=== PATIENT | female | born 1975 ===

== ENCOUNTER 2016-12-13 14:25 | Emergency (ER) | payer OTHER ==
[2016-12-13 14:25] VITALS: BMI 24.0
[2016-12-13 14:33] VITALS: BP 115/66; PULSE 81; RESP 16; TEMP 99.7; O2SAT 99
--- NOTE | 2016-12-13 16:03 | ED PDOC ---
HPI: Abdomen Time Seen by Provider: 12/13/16 15:11 Chief Complaint (Nursing): Abdominal Pain Chief Complaint (Provider): "worms" History Per: Patient Additional Complaint(s): 41 yo female, reports a PMH of HTN and "synthetic lupus," who presents to ED for evaluation of parasites in her stool x 1 month. Pt reports that Patient she has had severe anal itching and see's worms when she has a BM. No abdominal pain Pt reports no recent travel or raw, uncooked foods. Additionally, Pt notes intermittent episodes of right breast pain and swelling. No redness, no nipple discharge. Past Medical History Reviewed: Nursing Documentation, Vital Signs Vital Signs: Last Vital Signs Temp 99.7 F H 12/13/16 14:30 Pulse 81 12/13/16 14:30 Resp 16 12/13/16 14:30 BP 115/66 12/13/16 14:30 Pulse Ox 99 12/13/16 14:30 - Medical History PMH: Anemia, Seizures Denies: Chronic Kidney Disease - Surgical History Surgical History: Cholecystectomy - Family History Family History: States: Unknown Family Hx - Living Arrangements Living Arrangements: With Family - Social History Current smoker - smoking cessation education provided: No Alcohol: Social Drugs: Denies - Immunization History Hx Tetanus Toxoid Vaccination: No Hx Influenza Vaccination: No Hx Pneumococcal Vaccination: No - Home Medications Home Medications: Ambulatory Orders Medication Instructions Recorded Sulfamethoxazole/Trimethoprim 1 tab PO Q12 #0 tab 04/14/16 [Bactrim DS Tab] Albuterol HFA [Ventolin HFA 90 2 puff IH Q4H #1 puff 05/20/16 mcg/actuation (8 g)] Oseltamivir [Tamiflu] 75 mg PO BID #10 cap 05/20/16 Promethazine/Codeine 5 ml PO Q8 #60 ml 05/20/16 [Codeine/Promethazine 10 MG/5 Ml-6.25 MG/5 Ml] Mebendazole [Emverm] 100 mg PO DAILY #1 tab.chew 12/13/16 - Allergies Allergies/Adverse Reactions: Allergies Allergy/AdvReac Type Severity Reaction Status Date / Time peanut Allergy RASH Verified 12/13/16 14:30 Penicillins Allergy RASH Verified 05/20/16 16:42 Review of Systems ROS Statement: Except As Marked, All Systems Reviewed And Found Negative Gastrointestinal: Positive for: Other (rectal itching) Genitourinary Female: Positive for: Other (breast swelling) Physical Exam - Reviewed Nursing Documentation Reviewed: Yes Vital Signs Reviewed: Yes - Physical Exam Appears: Positive for: Well, Non-toxic, No Acute Distress Head Exam: Positive for: ATRAUMATIC, NORMAL INSPECTION, NORMOCEPHALIC Skin: Positive for: Normal Color, Warm, DRY Eye Exam: Positive for: EOMI, Normal appearance, PERRL ENT: Positive for: Normal ENT Inspection Neck: Positive for: Normal, Painless ROM Cardiovascular/Chest: Positive for: Regular Rate, Rhythm Respiratory: Positive for: CNT, Normal Breath Sounds Gastrointestinal/Abdominal: Positive for: Normal Exam, Bowel Sounds, Soft Back: Positive for: Normal Inspection Rectal: Positive for: Other (Pt deferred) Extremity: Positive for: Normal ROM Neurologic/Psych: Positive for: Alert, Oriented - ECG O2 Sat by Pulse Oximetry: 99 Medical Decision Making Medical Decision Making: Preg (-) Stool sample obtained and sent. Pt given RX for Mebendazole. Given follow up for [facility] clinic as well. Physical exam benign at this time, no masses noted. No erythema, no edema. imaging studies not clinically indicated at this time. Disposition - Clinical Impression Clinical Impression: Pinworms, Breast pain - Patient ED Disposition Is Patient to be Admitted: No - Disposition [facility] Disposition: Routine/Home Disposition Time: 16:06 Condition: STABLE Prescriptions: Mebendazole [Emverm] 100 mg PO DAILY #1 tab.chew Instructions: Enterobiasis (ED), Breast Self Exam for Women (ED)
== END 2016-12-13 16:25 | disposition home or self-care (01) ==
LOC: H.ER 14:25
DX: B80 Enterobiasis (principal)

== ENCOUNTER 2017-03-04 12:05 | Emergency (ER) | payer OTHER ==
[2017-03-04 12:11] VITALS: BP 137/83; PULSE 98; TEMP 98.8; O2SAT 98
[2017-03-04 12:12] VITALS: BMI 24.7
[2017-03-04 12:30] VITALS: RESP 16
--- NOTE | 2017-03-04 12:34 | ED PDOC ---
HPI: General Adult Time Seen by Provider: 03/04/17 12:18 Chief Complaint (Provider): Left Sided Facial Numbness, Abd Pain, Left Knee Pain , Anxiety History Per: Patient History/Exam Limitations: no limitations Current Symptoms Are (Timing): Still Present Additional Complaint(s): Tiara Robertson, a 41 year old female, with a past medical history of depression and lupus presents to the ED complaining of left sided facial numbness, abdominal pain, left knee pain, anxiety and parasites in her stool. Patient reports that she is unsure of how long she has had these symptoms. she states that she has been very stressed lately due to an upcoming court case for a DYFS matter. Denies homicidal/suicidal ideations. Past Medical History Reviewed: Historical Data, Nursing Documentation, Vital Signs Vital Signs: Last Vital Signs Temp 98.8 F 03/04/17 12:27 Pulse 98 H 03/04/17 12:27 Resp 16 03/04/17 12:27 BP 137/83 03/04/17 12:27 Pulse Ox 98 03/04/17 12:51 - Medical History PMH: Anemia, Depression, Seizures Denies: Chronic Kidney Disease - Surgical History Surgical History: Cholecystectomy - Family History Family History: States: Unknown Family Hx - Immunization History Hx Tetanus Toxoid Vaccination: No Hx Influenza Vaccination: No Hx Pneumococcal Vaccination: No - Home Medications Home Medications: Ambulatory Orders Medication Instructions Recorded No Known Home Med 03/04/17 - Allergies Allergies/Adverse Reactions: Allergies Allergy/AdvReac Type Severity Reaction Status Date / Time peanut Allergy RASH Verified 03/04/17 13:10 Penicillins Allergy RASH Verified 03/04/17 13:10 Review of Systems ROS Statement: Except As Marked, All Systems Reviewed And Found Negative Gastrointestinal: Positive for: Abdominal Pain, Other (Parasite in stool) Musculoskeletal: Positive for: Other (left knee pain) Neurological: Positive for: Numbness (left sided facial numbness) Physical Exam - Reviewed Nursing Documentation Reviewed: Yes Vital Signs Reviewed: Yes - Physical Exam Appears: Positive for: Non-toxic, No Acute Distress (tearful, crying) Head Exam: Positive for: ATRAUMATIC, NORMAL INSPECTION, NORMOCEPHALIC Skin: Positive for: Normal Color, Warm, Dry. Negative for: Rash Eye Exam: Positive for: Normal appearance, EOMI, PERRL. Negative for: Nystagmus Neck: Positive for: Normal, Painless ROM, Supple Cardiovascular/Chest: Positive for: Regular Rate, Rhythm, Chest Non Tender. Negative for: Tachycardia Respiratory: Positive for: Normal Breath Sounds. Negative for: Wheezing, Respiratory Distress Gastrointestinal/Abdominal: Positive for: Bowel Sounds, Soft, Tenderness ( tenderness in all 4 quadrants). Negative for: Distended, Guarding, Rebound Back: Positive for: Normal Inspection, Other (No spinal tenderness). Negative for: L CVA Tenderness, R CVA Tenderness, Vertebral Tenderness Extremity: Positive for: Normal ROM. Negative for: Tenderness, Pedal Edema, Deformity, Swelling Lymphatic: Positive for: Normal Exam. Negative for: Adenopathy Neurologic/Psych: Positive for: Alert (AAO x3), Oriented. Negative for: Motor/ Sensory Deficits, Gait - Laboratory Results Result Diagrams: 03/04/17 12:40 03/04/17 12:40 - ECG O2 Sat by Pulse Oximetry: 98 (RA) Pulse Ox Interpretation: Normal Medical Decision Making Medical Decision Makin Initial Impression 41 y/o female presenting with depression and anxiety Initial Plan: * Alcohol Serum * CMP * Drug Screen * Crisis Eval * Upreg * Udip * CBC * Reevaluation 1242 Upreg (-) Scribe Attestation Documented by Fiordaliza Judd acting as a scribe for Omar Figueroa MD. Provider Attestation All medical record entries made by the Scribe were at my direction and personally dictated by me. I have reviewed the chart and agree that the record accurately reflects my personal performance of the history, physical exam, medical decision making, and the department course for this patient. I have also personally directed, reviewed, and agree with the discharge instructions and disposition. Disposition - Clinical Impression Clinical Impression: Anxiety, Depression - Patient ED Disposition Is Patient to be Admitted: No Counseled Patient/Family Regarding: Diagnosis, Need For Followup - Disposition Referrals: [facility] [Outside] [facility] [Outside] Disposition: Routine/Home Disposition Time: 14:38 Condition: FAIR Instructions: Depression (ED), Anxiety (ED)
[2017-03-04 12:57] LABS: BASO % 0.3 % (0.0-2.0); EOS # 0.8 K/uL (0.0-0.7); EOS % 8.4 % (0.0-4.0); HEMATOCRIT 39.7 % (34.0-47.0); LYMPH # 1.6 K/uL (1.0-4.3); LYMPH % 16.3 % (20.0-40.0); MEAN CORPUSCULAR HGB CONC 34.8 g/dL (33.0-37.0); MEAN PLATELET VOLUME 8.7 fl (7.2-11.7); MONO # 0.7 K/uL (0.0-0.8); MONO % 7.1 % (0.0-10.0); NEUT # 6.7 K/uL (1.8-7.0); NEUT % 67.9 % (50.0-75.0); WHITE BLOOD COUNT 9.9 K/uL (4.8-10.8)
[2017-03-04 13:03] LABS: ALB/GLOB RATIO 1.2 (1.0-2.1); ALCOHOL SERUM < 10 mg/dl (0-10); ALKALINE PHOSPHATASE 64 U/L (38-126); ALT/SGPT 28 U/L (9-52); AST/SGOT 21 U/L (14-36); BILIRUBIN,TOTAL 0.5 mg/dl (0.2-1.3); BLOOD UREA NITROGEN 17 mg/dl (7-17); CALCIUM 8.9 mg/dL (8.4-10.2); CARBON DIOXIDE 23 mmol/L (22-30); CHLORIDE 109 mmol/L (98-107); GFR AFRICAN-AMERICAN > 60; GLUCOSE,RANDOM 115 mg/dL (65-105); POTASSIUM 3.9 MMOL/L (3.6-5.0); SODIUM 145 mmol/l (132-148); TOTAL PROTEIN 7.8 G/DL (6.3-8.2)
== END 2017-03-04 15:47 | disposition home or self-care (01) ==
LOC: H.ER 12:05
DX: F41.9 Anxiety disorder, unspecified (principal); F32.9 Major depressive disorder, single episode, unspecified; Z00.8 Encounter for other general examination

== ENCOUNTER 2017-04-30 08:25 | Emergency (ER) | payer OTHER ==
[2017-04-30 08:25] VITALS: BMI 24.7
[2017-04-30 08:27] VITALS: BP 114/71; PULSE 85; TEMP 97.6; O2SAT 98
[2017-04-30] MEDS ORDERED: Sodium Chloride 0.9% 1,000 ML IV STA (09:26)
--- NOTE | 2017-04-30 09:28 | ED PDOC ---
HPI: Abdomen Time Seen by Provider: 04/30/17 09:19 Chief Complaint (Nursing): Abdominal Pain History Per: Patient Onset/Duration Of Symptoms: Days (3) Current Symptoms Are (Timing): Still Present Severity: Moderate Pain Scale Rating Of: 3 Location Of Pain/Discomfort: RUQ, RLQ, Epigastric Quality Of Discomfort: Unable To Describe Associated Symptoms: Fever, Nausea, Vomiting, Diarrhea, Urinary Symptoms Exacerbating Factors: None Alleviating Factors: None Additional Complaint(s): Abd pain assoc with nausea vomiting and diarrhea assoc with fever and chills. Also c/o blood in urine. Past Medical History Vital Signs: Last Vital Signs Temp 97.6 F 04/30/17 08:26 Pulse 85 04/30/17 08:26 Resp BP 114/71 04/30/17 08:26 Pulse Ox 98 04/30/17 09:29 - Medical History PMH: Anemia, Depression, Seizures, Sexually Transmitted Disease Denies: Diabetes, Hepatitis, HIV, HTN, Chronic Kidney Disease - Surgical History Surgical History: Cholecystectomy - Family History Family History: States: Unknown Family Hx - Immunization History Hx Tetanus Toxoid Vaccination: No Hx Influenza Vaccination: No Hx Pneumococcal Vaccination: No - Home Medications Home Medications: Ambulatory Orders Medication Instructions Recorded Ciprofloxacin HCl [Cipro] 500 mg PO BID #20 tab 03/04/17 Nitrofurantoin Macrocrystals 100 mg PO BID #14 cap 03/10/17 [Macrobid] Ciprofloxacin HCl [Cipro] 500 mg PO BID #20 tab 04/30/17 Dicyclomine [Dicyclomine HCl] 10 mg PO TID #10 cap 04/30/17 - Allergies Allergies/Adverse Reactions: Allergies Allergy/AdvReac Type Severity Reaction Status Date / Time peanut Allergy RASH Verified 03/04/17 13:10 Penicillins Allergy RASH Verified 03/04/17 13:10 Review of Systems ROS Statement: Except As Marked, All Systems Reviewed And Found Negative Gastrointestinal: Positive for: Nausea, Vomiting, Abdominal Pain Genitourinary Female: Positive for: Hematuria Physical Exam - Reviewed Nursing Documentation Reviewed: Yes Vital Signs Reviewed: Yes - Physical Exam Appears: Positive for: Non-toxic, No Acute Distress Head Exam: Positive for: ATRAUMATIC, NORMAL INSPECTION, NORMOCEPHALIC Skin: Positive for: Normal Color, Warm, DRY Eye Exam: Positive for: EOMI, Normal appearance, PERRL ENT: Positive for: Normal ENT Inspection Neck: Positive for: Normal, Painless ROM Cardiovascular/Chest: Positive for: Regular Rate, Rhythm Respiratory: Positive for: CNT, Normal Breath Sounds Gastrointestinal/Abdominal: Positive for: Bowel Sounds, Soft, Tenderness ( epigastric and right lower quad and right flank) Back: Positive for: Normal Inspection Extremity: Positive for: Normal ROM Neurologic/Psych: Positive for: Alert, Oriented - Laboratory Results Result Diagrams: 04/30/17 09:50 04/30/17 09:50 - ECG O2 Sat by Pulse Oximetry: 98 Disposition - Clinical Impression Clinical Impression: UTI (urinary tract infection), Enteritis - Patient ED Disposition Is Patient to be Admitted: No Counseled Patient/Family Regarding: Studies Performed, Diagnosis, Need For Followup, Rx Given - Disposition Referrals: [facility] [Outside] Disposition: Routine/Home Disposition Time: 14:29 Condition: FAIR Prescriptions: Ciprofloxacin HCl [Cipro] 500 mg PO BID #20 tab Dicyclomine [Dicyclomine HCl] 10 mg PO TID #10 cap Instructions: Urinary Tract Infection in Women (ED) Forms: [employer] [facility] (Jamaican)
[2017-04-30 09:54] LABS: BASO % 0.7 % (0.0-2.0); EOS % 0.3 % (0.0-4.0); HEMATOCRIT 42.8 % (34.0-47.0); LYMPH # 1.1 K/uL (1.0-4.3); LYMPH % 17.8 % (20.0-40.0); MEAN CELL VOLUME 90.7 fl (81.0-99.0); MEAN CORPUSCULAR HEMOGLOBIN 30.3 pg (27.0-31.0); MEAN CORPUSCULAR HGB CONC 33.4 g/dL (33.0-37.0); MEAN PLATELET VOLUME 8.7 fl (7.2-11.7); MONO # 0.5 K/uL (0.0-0.8); NEUT # 4.5 K/uL (1.8-7.0); NEUT % 73.2 % (50.0-75.0); WHITE BLOOD COUNT 6.2 K/uL (4.8-10.8)
[2017-04-30 10:07] LABS: ALB/GLOB RATIO 1.1 (1.0-2.1); ALKALINE PHOSPHATASE 69 U/L (38-126); ALT/SGPT 41 U/L (9-52); AST/SGOT 27 U/L (14-36); BILIRUBIN,TOTAL 0.4 mg/dl (0.2-1.3); BLOOD UREA NITROGEN 17 mg/dl (7-17); CALCIUM 8.3 mg/dL (8.4-10.2); CARBON DIOXIDE 24 mmol/L (22-30); CHLORIDE 106 mmol/L (98-107); GFR AFRICAN-AMERICAN > 60; GLUCOSE,RANDOM 90 mg/dL (65-105); POTASSIUM 3.6 MMOL/L (3.6-5.0); SODIUM 141 mmol/l (132-148); TOTAL PROTEIN 7.7 G/DL (6.3-8.2)
[2017-04-30 10:49] LABS: RBC URINE 942 /hpf (0-3); URINE BACTERIA MOD (<OCC); URINE BILIRUBIN NEGATIVE (NEGATIVE); URINE BLOOD LARGE (NEGATIVE); URINE COLOR RED (YELLOW); URINE GLUCOSE (UA) NEG (Normal); URINE KETONE TRACE mg/dL (NEGATIVE); URINE LEUKOCYTE ESTERASE NEG Leu/uL (Negative); URINE PROTEIN 100 mg/dL (NEGATIVE); WBC URINE 14 /hpf (0-5)
[2017-04-30] MEDS ORDERED: Sodium Chloride 0.9% 50 ML IV ONE (11:50)
[2017-04-30] MEDS ORDERED: Iohexol 300 100 ML IJ ONE (11:50)
--- NOTE | 2017-04-30 13:30 | CT ---
PROCEDURE: CT Abdomen and Pelvis with contrast HISTORY: Abdominal pain COMPARISON: None. TECHNIQUE: CT scan of the abdomen and pelvis was performed after intravenous administration of contrast. Oral contrast was not administered. Coronal and sagittal reformatted images were obtained. Contrast dose: 95 cc Omnipaque 300 Radiation dose: Total exam DLP = 367.74 mGy-cm. This CT exam was performed using one or more of the following dose reduction techniques: Automated exposure control, adjustment of the mA and/or kV according to patient size, and/or use of iterative reconstruction technique. FINDINGS: LOWER THORAX: The lung bases are clear. LIVER: Normal in size with homogeneous enhancement. No gross lesion or ductal dilatation. GALLBLADDER AND BILE DUCTS: Surgically absent.Mild diffuse dilatation of the common bile duct is in keeping with postcholecystectomy status PANCREAS: Normal in size with homogeneous enhancement. No gross lesion or ductal dilatation. SPLEEN: Normal in size and appearance. ADRENALS: No discrete nodule. KIDNEYS AND URETERS: Normal in size and homogeneous enhancement without hydronephrosis. No solid mass. VASCULATURE: No aortic aneurysm. BOWEL: The proximal small bowel loops are normal in caliber and appearance. There is mild dilatation of fluid-filled mid and distal small bowel loops. There is also fluid in the ascending colon. There is a moderate amount of stool in the sigmoid colon and rectum. No bowel obstruction. APPENDIX: Normal appendix. PERITONEUM: No free fluid. No free air. LYMPH NODES: No enlarged lymph nodes. BLADDER: Unremarkable. REPRODUCTIVE: The uterus is normal in size. BONES: No acute fracture. Within normal limits for the patient's age. OTHER FINDINGS: None. IMPRESSION: 1. Mild dilatation of fluid-filled mid and distal small bowel loops and fluid in the ascending colon may represent nonspecific enterocolitis. 2. No CT evidence for acute appendicitis.
--- NOTE | 2017-04-30 14:21 | CP.PCM.CON ---
History of Present Illness - History of Present Illness History of Present Illness: General surgery consult note for Dr. Lindsey Chavez, PGY-1 Pt S & E at bedside. 41F w/PMH sig for lupus consulted for abdominal pain x 2 days. Pt reports periumbilical ab pain after eating chicken strips 2 days ago, pain is sharp/ stabbing, constant, radiating diffusely, severe. Pain alleviated by position, aggravated by PO intake. Admits to multiple episodes of watery, slightly bloody diarrhea with "white worms", multiple episodes of emesis (nbnb) with nausea, anorexia, subjective F & C, diaphoresis, MACIAS, malaise, vaginal discharge/blood. States she eats out frequently. Denies recent travel, other complaints. 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 absent: Chest Pain - Gastrointestinal Gastrointestinal: Abdominal Pain, Change in Bowel Habits, Diarrhea, Loose Stools , Nausea, Vomiting. absent: Hematemesis, Hematochezia - Reproductive: Female Reproductive:Female: Abnormal Vaginal Bleeding, Vaginal Discharge, Vaginal Odor - Musculoskeletal Musculoskeletal: Myalgias - Psychiatric Psychiatric: Change in Appetite (decreased) Past Patient History - Past Medical History & Family History Past Medical History?: Yes - Past Social History Smoking Status: Heavy Smoker > 10 Cigarettes Daily - CARDIAC Hx Hypertension: No - PULMONARY Hx Tuberculosis: No - NEUROLOGICAL Hx Seizures: Yes - HEENT Hx HEENT Problems: No - RENAL Hx Chronic Kidney Disease: No - ENDOCRINE/METABOLIC Hx Endocrine Disorders: Yes Hx Diabetes Mellitus Type 2: Yes (borderline) Hx Systemic Lupus Erythematosus: Yes - HEMATOLOGICAL/ONCOLOGICAL Hx Anemia: Yes Hx Human Immunodeficiency Virus (HIV): No - INTEGUMENTARY Hx Dermatological Problems: No - MUSCULOSKELETAL/RHEUMATOLOGICAL Hx Musculoskeletal Disorders: Yes Hx Falls: Yes - GASTROINTESTINAL Hx Gastrointestinal Disorders: Yes Other/Comment: E.coli -3 wks ago - GENITOURINARY/GYNECOLOGICAL Hx Sexually Transmitted Disorders: Yes - PSYCHIATRIC Hx Depression: Yes - SURGICAL HISTORY Hx Cholecystectomy: Yes - ANESTHESIA Hx Anesthesia: Yes Hx Anesthesia Reactions: No Hx Malignant Hyperthermia: No Meds Home Medications: Home Medication List Medication Instructions Recorded Confirmed Type Ciprofloxacin HCl [Cipro] 500 mg PO BID #20 tab 04/30/17 Rx Dicyclomine [Dicyclomine HCl] 10 mg PO TID #10 cap 04/30/17 Rx Allergies/Adverse Reactions: Allergies Allergy/AdvReac Type Severity Reaction Status Date / Time peanut Allergy RASH Verified 03/04/17 13:10 Penicillins Allergy RASH Verified 03/04/17 13:10 - Medications Medications: Current Medications Sodium Chloride (Sodium Chloride 0.9%) 1,000 mls @ 100 mls/hr IV .Q10H STA Stop: 04/30/17 19:25 Last Admin: 04/30/17 10:55 Dose: 100 mls/hr Physical Exam - Constitutional Appears: Non-toxic, No Acute Distress - Head Exam Head Exam: ATRAUMATIC, NORMAL INSPECTION, NORMOCEPHALIC - Eye Exam Eye Exam: EOMI, Normal appearance - ENT Exam ENT Exam: Mucous Membranes Moist, Normal Exam - Neck Exam Neck exam: Positive for: Normal Inspection - Respiratory Exam Respiratory Exam: Clear to Auscultation Bilateral, NORMAL BREATHING PATTERN - Cardiovascular Exam Cardiovascular Exam: REGULAR RHYTHM, +S1, +S2 - GI/Abdominal Exam GI & Abdominal Exam: Hyperactive Bowel Sounds, Soft, Tenderness (periumbilical) . absent: Distended, Firm, Guarding, Rebound, Rigid - Extremities Exam Extremities exam: Negative for: pedal edema - Neurological Exam Neurological exam: Alert, CN II-XII Intact, Oriented x3 - Psychiatric Exam Psychiatric exam: Normal Affect, Normal Mood - Skin Skin Exam: Dry, Intact, Normal Color, Warm Results - Vital Signs Recent Vital Signs: Last Vital Signs Temp 97.6 F 04/30/17 08:26 Pulse 85 04/30/17 08:26 Resp BP 114/71 04/30/17 08:26 Pulse Ox 98 04/30/17 09:29 - Labs Result Diagrams: 04/30/17 09:50 04/30/17 09:50 Labs: Laboratory Results - last 24 hr 04/30/17 04/30/17 04/30/17 09:50 09:50 10:03 WBC 6.2 RBC 4.72 Hgb 14.3 Hct 42.8 MCV 90.7 MCH 30.3 MCHC 33.4 RDW 13.0 Plt Count 246 MPV 8.7 Neut % (Auto) 73.2 Lymph % (Auto) 17.8 L [place] % (Auto) 8.0 Eos % (Auto) 0.3 Baso % (Auto) 0.7 Neut # 4.5 Lymph # 1.1 [place] # 0.5 Eos # 0.0 Baso # 0.0 Sodium 141 Potassium 3.6 Chloride 106 Carbon Dioxide 24 Anion Gap 15 BUN 17 Creatinine 0.8 Est GFR ( Amer) > 60 Est GFR (Non-Af Amer) > 60 Random Glucose 90 Calcium 8.3 L Total Bilirubin 0.4 AST 27 ALT 41 Alkaline Phosphatase 69 Total Protein 7.7 Albumin 4.1 Globulin 3.6 Albumin/Globulin Ratio 1.1 Urine Color Red Urine Clarity Cloudy Urine pH 6.0 Ur Specific [place] 1.016 Urine Protein 100 Urine Glucose (UA) Neg Urine Ketones Trace Urine Blood Large Urine Nitrate Positive H Urine Bilirubin Negative Urine Urobilinogen 2.0 H Ur Leukocyte Esterase Neg Urine RBC (Auto) 942 H Urine Microscopic WBC 14 H Ur Squamous Epith Cells 11 H Urine Bacteria Mod H Assessment & Plan - Assessment and Plan (Free Text) Assessment: 41F w/acute gastroenteritis Plan: IVF ABx Stool ova & parasites Recommend pelvic exam refer to Endocrinology Specialist Follow up with PMD Will ANDREW attending Kathy, PGY-1 - Date & Time Date: 04/30/17 Time: 14:20
== END 2017-04-30 14:50 | disposition home or self-care (01) ==
LOC: H.ER 08:25
DX: N39.0 Urinary tract infection, site not specified (principal); K52.9 Noninfective gastroenteritis and colitis, unspecified; F17.210 Nicotine dependence, cigarettes, uncomplicated; E11.9 Type 2 diabetes mellitus without complications; Z86.59 Personal history of other mental and behavioral disorders; Z88.0 Allergy status to penicillin
CPT/HCPCS: 74177; 80053; 81003; 81025; 85025; 87045; 87086; 99283; J7040; Q9967

== ENCOUNTER 2017-05-10 18:05 | Emergency (ER) | payer OTHER ==
[2017-05-10 18:06] VITALS: BMI 24.7
[2017-05-10 18:15] VITALS: RESP 18; O2SAT 99
[2017-05-10] MEDS ORDERED: Sodium Chloride 0.9% 1,000 ML IV STA ×2 (19:13→22:24)
--- NOTE | 2017-05-10 20:41 | ED PDOC ---
HPI: Abdomen Time Seen by Provider: 05/10/17 18:55 Chief Complaint (Nursing): Abdominal Pain Chief Complaint (Provider): Abdominal pain History Per: Patient History/Exam Limitations: no limitations Additional Complaint(s): Patient is a 41 y/o female with a past medical history of lupus presenting to the emergency department for abdominal pain, chills, vomiting, diarrhea, nausea , and a headache. Of note, reports that on April 30, 2017, she was diagnosed with E. coli. Yesterday, she was called by the health department to go to the ED because she grew campylobacter in her stool. Further notes that she has lost weight and can see small white worms in her stool. Admits to fecal-oral transmission during sexual intercourse. Denies fever or other complaints. PCP: none provided. Past Medical History Reviewed: Historical Data, Nursing Documentation, Vital Signs Vital Signs: Last Vital Signs Temp 98 F 05/10/17 18:09 Pulse 77 05/10/17 18:09 Resp 18 05/10/17 18:09 BP 124/96 H 05/10/17 18:09 Pulse Ox 99 05/10/17 20:50 - Medical History PMH: Anemia, Depression, Seizures, Sexually Transmitted Disease Denies: Diabetes, Hepatitis, HIV, HTN, Chronic Kidney Disease Other PMH: Lupus - Surgical History Surgical History: Cholecystectomy - Family History Family History: States: Unknown Family Hx - Immunization History Hx Tetanus Toxoid Vaccination: No Hx Influenza Vaccination: No Hx Pneumococcal Vaccination: No - Home Medications Home Medications: Ambulatory Orders Medication Instructions Recorded Levofloxacin [Levaquin] 750 mg PO DAILY #7 tablet 05/10/17 Sulfamethoxazole/Trimethoprim 1 tab PO BID 05/10/17 [Bactrim DS Tab] - Allergies Allergies/Adverse Reactions: Allergies Allergy/AdvReac Type Severity Reaction Status Date / Time peanut Allergy RASH Verified 03/04/17 13:10 Penicillins Allergy RASH Verified 03/04/17 13:10 Review of Systems ROS Statement: Except As Marked, All Systems Reviewed And Found Negative Constitutional: Positive for: Chills, Weight loss. Negative for: Fever Gastrointestinal: Positive for: Nausea, Vomiting, Abdominal Pain, Diarrhea Neurological: Positive for: Headache Physical Exam - Reviewed Nursing Documentation Reviewed: Yes Vital Signs Reviewed: Yes - Physical Exam Appears: Positive for: Non-toxic, No Acute Distress (comfortable). Negative for : Uncomfortable Head Exam: Positive for: ATRAUMATIC, NORMAL INSPECTION, NORMOCEPHALIC Skin: Positive for: Normal Color, Warm, Dry Eye Exam: Positive for: Normal appearance Neck: Positive for: Normal Cardiovascular/Chest: Positive for: Regular Rate, Rhythm. Negative for: Murmur Respiratory: Positive for: Normal Breath Sounds. Negative for: Accessory Muscle Use, Respiratory Distress Gastrointestinal/Abdominal: Positive for: Normal Exam, Tenderness (diffuse minimal tenderness to palpation of abdomen) Extremity: Positive for: Normal ROM Neurologic/Psych: Positive for: Alert, Oriented (x3) - Laboratory Results Result Diagrams: 05/10/17 19:50 05/10/17 19:50 - ECG O2 Sat by Pulse Oximetry: 99 (RA) Pulse Ox Interpretation: Normal Medical Decision Making Medical Decision Making: Initial Impression: gastroenteritis secondary campylobacter Initial Plan: CMP Lipase CBC Toradol 15 mg IVP Reglan 10 mg IVP Normal Saline 1 L IV Blood Culture Stool Culture Urine Culture Urinalysis Reevaluation 19:21 Dr. Mclean states that patient is reliable for discharge and may be instructed to complete a follow up. Patient has been compliant with her Cipro and bactrim, will instruct to take levoquin. [employer] connect instructions given. Return precautions given as well. Pt. feeling well, tolerating PO. Will d/c home. Scribe Attestation: Documented by Kasey Gómez, acting as a scribe for Toney Sommesr MD. Provider Scribe Attestation: All medical record entries made by the Scribe were at my direction and personally dictated by me. I have reviewed the chart and agree that the record accurately reflects my personal performance of the history, physical exam, medical decision making, and the department course for this patient. I have also personally directed, reviewed, and agree with the discharge instructions and disposition. Disposition - Clinical Impression Clinical Impression: Gastroenteritis - Patient ED Disposition Is Patient to be Admitted: No - Disposition Referrals: Magen Nieto MD [Staff Provider] [facility] Disposition: Routine/Home Disposition Time: 22:01 Condition: STABLE Prescriptions: Levofloxacin [Levaquin] 750 mg PO DAILY #7 tablet Instructions: Gastroenteritis (ED) Forms: [employer] (Martiniquais)
[2017-05-10 20:48] LABS: BASO # 0.1 K/uL (0.0-0.2); BASO % 1.4 % (0.0-2.0); EOS # 0.6 K/uL (0.0-0.7); EOS % 5.3 % (0.0-4.0); HEMATOCRIT 39.5 % (34.0-47.0); LYMPH # 3.1 K/uL (1.0-4.3); LYMPH % 29.3 % (20.0-40.0); MEAN CELL VOLUME 88.9 fl (81.0-99.0); MEAN CORPUSCULAR HEMOGLOBIN 30.7 pg (27.0-31.0); MEAN CORPUSCULAR HGB CONC 34.6 g/dL (33.0-37.0); MEAN PLATELET VOLUME 8.8 fl (7.2-11.7); MONO # 0.9 K/uL (0.0-0.8); MONO % 8.1 % (0.0-10.0); NEUT # 5.8 K/uL (1.8-7.0); NEUT % 55.9 % (50.0-75.0); NRBC % 0.1 % (0.0-0.0); RED CELL DISTRIBUTION WIDTH 12.5 % (11.5-14.5); WHITE BLOOD COUNT 10.4 K/uL (4.8-10.8)
[2017-05-10 20:58] LABS: ALB/GLOB RATIO 1.2 (1.0-2.1); ALKALINE PHOSPHATASE 62 U/L (38-126); ALT/SGPT 41 U/L (9-52); AST/SGOT 27 U/L (14-36); BILIRUBIN,TOTAL 0.5 mg/dl (0.2-1.3); BLOOD UREA NITROGEN 13 mg/dl (7-17); CALCIUM 8.7 mg/dL (8.4-10.2); CARBON DIOXIDE 25 mmol/L (22-30); CHLORIDE 105 mmol/L (98-107); GFR AFRICAN-AMERICAN > 60; GLUCOSE,RANDOM 77 mg/dL (65-105); LIPASE 142 U/L (23-300); POTASSIUM 3.9 MMOL/L (3.6-5.0); SODIUM 139 mmol/l (132-148); TOTAL PROTEIN 7.8 G/DL (6.3-8.2)
[2017-05-10] MEDS ORDERED: levoFLOXacin 750 mg in D5W 750 MG/150 ML BAG IVPB STA (21:01)
[2017-05-10 21:03] LABS: RBC URINE 3 /hpf (0-3); URINE BACTERIA RARE (<OCC); URINE BILIRUBIN NEGATIVE (NEGATIVE); URINE BLOOD NEGATIVE (NEGATIVE); URINE COLOR YELLOW (YELLOW); URINE GLUCOSE (UA) NEG (Normal); URINE KETONE TRACE mg/dL (NEGATIVE); URINE LEUKOCYTE ESTERASE NEG Leu/uL (Negative); URINE PROTEIN NEGATIVE (NEGATIVE); WBC URINE 1 /hpf (0-5)
[2017-05-10] MEDS ORDERED: levoFLOXacin 750 mg in D5W 750 MG/150 ML BAG IVPB ONE (21:36)
[2017-05-11 00:09] VITALS: BP 110/78; PULSE 70; TEMP 98.8
== END 2017-05-11 00:09 | disposition home or self-care (01) ==
LOC: H.ER 18:05
DX: K52.9 Noninfective gastroenteritis and colitis, unspecified (principal); M32.9 Systemic lupus erythematosus, unspecified; F32.9 Major depressive disorder, single episode, unspecified; Z88.0 Allergy status to penicillin
CPT/HCPCS: 80053; 81003; 81025; 83605; 83690; 85025; 87040; 87086; 96374; 96375; 99283; J1885; J2765; J7040

== ENCOUNTER 2017-12-01 19:45 | Emergency (ER) | payer OTHER ==
[2017-12-01 19:45] VITALS: BMI 24.7
[2017-12-01] MEDS ORDERED: Sodium Chloride 0.9% 1,000 ML IV STA (20:45)
--- NOTE | 2017-12-01 20:50 | ED PDOC ---
HPI:Nausea, Vomiting, Diarrhea Chief Complaint (Provider): Diarrhea History Per: Patient History/Exam Limitations: no limitations Onset/Duration Of Symptoms: Days (4) Current Symptoms Are (Timing): Still Present Have you had recent travel within the past 21 days to any of the following countries: [place], [place], [place] or [place]?: No Context: Other (Unknown) Severity: Moderate Quality Of Discomfort: Cramping, "Pain" Associated Symptoms: Diarrhea (mucous), Loss Of Appetite Exacerbating Factors: Food Alleviating Factors: None Last Bowel Movement: Today Additional History Per: Patient Additional Complaint(s): 42 y/o F with PMhx of LES? presents c/o mucous diarrhea for the past 4 days with associated cramping abd pain that hasnt improved and is worse everytimes he eats. Also patient c/o noticing white small worms in the stools and c/o night time itching in the anus as well as perianal erythema. Denies fever, headache, CP, vomiting. Patient lives alone, denies recent traveling. admits eating out often in places like a [employer] with a lot of people including homeless people around. Has no other complains and is not taking any medications at this time. <Alfredo Archer - Last Filed: 12/01/17 22:22> <Lisa Cedillo - Last Filed: 12/02/17 17:29> Time Seen by Provider: 12/01/17 20:23 Chief Complaint (Nursing): GI Problem Supervising Attending Note - Supervising Attending Note The Documented history was done by the: Physician Director Prison The documented physical exam was done by the: Physician Director Prison, Attending Physician - Attestation: I have personally seen and examined this patient.: Yes I have fully participated in the care of the patient.: Yes I have reviewed all pertinent clinical information, including history, physical exam and plan: Yes <Lisa Cedillo - Last Filed: 12/02/17 17:29> Past Medical History Reviewed: Nursing Documentation, Vital Signs Vital Signs: Last Vital Signs Temp 98.1 F 12/01/17 20:15 Pulse 74 12/01/17 20:15 Resp 20 12/01/17 20:15 BP 101/61 12/01/17 20:15 Pulse Ox 99 07/07/18 20:15 - Medical History PMH: Anemia, Depression Denies: Diabetes, Hepatitis, HIV, HTN, Chronic Kidney Disease - Surgical History Surgical History: Cholecystectomy - Family History Family History: States: Unknown Family Hx - Living Arrangements Living Arrangements: Alone - Social History Current smoker - smoking cessation education provided: Yes Alcohol: None Drugs: Denies - Immunization History Hx Tetanus Toxoid Vaccination: No Hx Influenza Vaccination: No Hx Pneumococcal Vaccination: No <Alfredo Archer - Last Filed: 12/01/17 22:22> Vital Signs: Last Vital Signs Temp 98 F 12/01/17 23:14 Pulse 78 12/01/17 23:14 Resp 18 12/01/17 23:14 BP 140/76 12/01/17 23:14 Pulse Ox 99 12/01/17 23:14 <Lisa Cedillo - Last Filed: 12/02/17 17:29> - Home Medications Home Medications: Ambulatory Orders Medication Instructions Recorded Levofloxacin [Levaquin] 750 mg PO DAILY #7 tablet 05/10/17 Sulfamethoxazole/Trimethoprim 1 tab PO BID 05/10/17 [Bactrim DS Tab] - Allergies Allergies/Adverse Reactions: Allergies Allergy/AdvReac Type Severity Reaction Status Date / Time peanut Allergy RASH Verified 03/04/17 13:10 Penicillins Allergy RASH Verified 03/04/17 13:10 Review of Systems ROS Statement: Except As Marked, All Systems Reviewed And Found Negative Constitutional: Positive for: Weakness Gastrointestinal: Positive for: Abdominal Pain, Diarrhea <Alfredo Archer - Last Filed: 12/01/17 22:22> Physical Exam - Physical Exam Appears: Positive for: Well, Non-toxic, No Acute Distress Skin: Positive for: Normal Color, Warm, Dry Eye Exam: Positive for: EOMI, PERRL Cardiovascular/Chest: Positive for: Regular Rate, Rhythm, Chest Non Tender. Negative for: Edema, Gallop, Murmur Gastrointestinal/Abdominal: Positive for: Soft, Tenderness (Epigastric). Negative for: Distended, Guarding, Rebound Extremity: Positive for: Capillary Refill (<2). Negative for: Tenderness, Pedal Edema, Swelling Neurologic/Psych: Positive for: Alert, Oriented, Gait (Normal). Negative for: Motor/Sensory Deficits, Facial Droop <Alfredo Archer - Last Filed: 12/01/17 22:22> - Laboratory Results Result Diagrams: 12/01/17 21:03 12/01/17 21:03 - ECG O2 Sat by Pulse Oximetry: 99 - Progress ED Course And Treament: BM while on ED pasty, brownish no parasites seen Blood work unremarkable Udip WNL Received 1L IV fluids Remained stable <Alfredo Archer - Last Filed: 12/01/17 22:22> - Laboratory Results Result Diagrams: 12/01/17 21:03 12/01/17 21:03 <Lisa Cedillo - Last Filed: 12/02/17 17:29> Medical Decision Making Medical Decision Makin42 y/o F presents c/o diarrhea and parasites in her stools IV fluids Stools for Cx and O&P Mg, Phos UPreg, CBC and CMP <Alfredo Archer - Last Filed: 12/01/17 22:22> Disposition - Patient ED Disposition Is Patient to be Admitted: No Counseled Patient/Family Regarding: Diagnosis, Need For Followup - Disposition Disposition: Routine/Home Disposition Time: 22:25 <Alfredo Archer - Last Filed: 12/01/17 22:22> <Lisa Cedillo - Last Filed: 12/02/17 17:29> - Clinical Impression Clinical Impression: Gastroenteritis - Disposition Referrals: [facility] [Outside] Condition: STABLE Additional Instructions: F/U with your PMD in 2-3 days If worsening diarrhea, vomiting or fever return to ED Instructions: Diarrhea in Adolescents and Adults Forms: [facility] ([place])
[2017-12-01 21:10] LABS: BASO # 0.1 K/uL (0.0-0.2); EOS # 1.1 K/uL (0.0-0.7); HEMOGLOBIN 12.7 g/dL (12.0-16.0); LYMPH # 2.3 K/uL (1.0-4.3); LYMPH % 27.9 % (20.0-40.0); MEAN CELL VOLUME 91.1 fl (81.0-99.0); MEAN CORPUSCULAR HEMOGLOBIN 30.8 pg (27.0-31.0); MEAN CORPUSCULAR HGB CONC 33.9 g/dL (33.0-37.0); MEAN PLATELET VOLUME 8.3 fl (7.2-11.7); MONO # 0.6 K/uL (0.0-0.8); MONO % 7.8 % (0.0-10.0); NEUT % 49.3 % (50.0-75.0); NRBC % 0.1 % (0.0-0.0); RBC 4.11 Mil/uL (3.80-5.20); RED CELL DISTRIBUTION WIDTH 13.1 % (11.5-14.5); WHITE BLOOD COUNT 8.1 K/uL (4.8-10.8)
[2017-12-01 21:18] LABS: ALB/GLOB RATIO 1.2 (1.0-2.1); ALBUMIN 3.8 g/dL (3.5-5.0); ALT/SGPT 43 U/L (9-52); AST/SGOT 34 U/L (14-36); BLOOD UREA NITROGEN 14 mg/dl (7-17); CALCIUM 8.1 mg/dL (8.4-10.2); GFR AFRICAN-AMERICAN > 60; GFR NON-AFRICAN AMERICAN > 60
[2017-12-01 22:08] VITALS: TEMP 98
[2017-12-01 22:25] VITALS: O2SAT 99
[2017-12-01 23:15] VITALS: BP 140/76; PULSE 78; RESP 18
== END 2017-12-01 23:15 | disposition home or self-care (01) ==
LOC: H.ER 19:45
DX: K52.9 Noninfective gastroenteritis and colitis, unspecified (principal); F17.200 Nicotine dependence, unspecified, uncomplicated; Z88.0 Allergy status to penicillin; Z86.59 Personal history of other mental and behavioral disorders
CPT/HCPCS: 80053; 81025; 83735; 84100; 85025; 87045; 87177; 87209; 99284; J7030

== ENCOUNTER 2018-10-07 22:28 | Emergency (ER) | payer SELFPAY ==
[2018-10-07 22:29] VITALS: BMI 24.7
[2018-10-07 22:42] VITALS: RESP 16; O2SAT 97
--- NOTE | 2018-10-07 23:11 | ED PDOC ---
HPI: Abdomen Time Seen by Provider: 10/07/18 22:44 Chief Complaint (Nursing): Abdominal Pain Chief Complaint (Provider): abdominal pain History Per: Patient History/Exam Limitations: no limitations Onset/Duration Of Symptoms: Days (2 weeks), Waxing/Waning Current Symptoms Are (Timing): Still Present Location Of Pain/Discomfort: Diffuse Quality Of Discomfort: "Pain" Additional Complaint(s): 43 y/o female presents for evaluation of intermittent abdominal pain x 2 weeks. Patient reports pain worse when urinating, and reports going more than usual. Patient also reports noticing "pinworms" in her stool last week, states she used something over the counter at the pharmacy and they went away and then came back 3 days ago. Patient also states she has been noticing red blood mixed in with her stool the last 3 days with fever 2 days ago. Denies headache, dizziness, nausea/vomiting, chest pain, shortness of breath, palpitations, vaginal bleeding/discharge Patient also reports painful blisters to left foot x months. Last Menstral Period: 10/04/18 Past Medical History Reviewed: Historical Data, Nursing Documentation, Vital Signs Vital Signs: Last Vital Signs Temp 98.2 F 10/07/18 22:36 Pulse 87 10/07/18 22:36 Resp 16 10/07/18 22:36 BP 114/73 10/07/18 22:36 Pulse Ox 97 10/07/18 22:36 Primary Care Provider: Dina Grier - Medical History PMH: Anemia, Depression, Seizures, Sexually Transmitted Disease Denies: Diabetes, Hepatitis, HIV, HTN, Chronic Kidney Disease - Surgical History Surgical History: Cholecystectomy - Family History Family History: States: Unknown Family Hx - Immunization History Hx Tetanus Toxoid Vaccination: No Hx Influenza Vaccination: No Hx Pneumococcal Vaccination: No - Home Medications Home Medications: Ambulatory Orders Medication Instructions Recorded Levofloxacin [Levaquin] 750 mg PO DAILY #7 tablet 05/10/17 Sulfamethoxazole/Trimethoprim 1 tab PO BID 05/10/17 [Bactrim DS Tab] - Allergies Allergies/Adverse Reactions: Allergies Allergy/AdvReac Type Severity Reaction Status Date / Time peanut Allergy RASH Verified 03/04/17 13:10 Penicillins Allergy RASH Verified 03/04/17 13:10 Review of Systems ROS Statement: Except As Marked, All Systems Reviewed And Found Negative Gastrointestinal: Positive for: Abdominal Pain, Hematochezia Genitourinary Female: Positive for: Frequency Musculoskeletal: Positive for: Foot Pain Physical Exam - Reviewed Nursing Documentation Reviewed: Yes Vital Signs Reviewed: Yes - Physical Exam Appears: Positive for: Well, Non-toxic, No Acute Distress Head Exam: Positive for: ATRAUMATIC, NORMAL INSPECTION, NORMOCEPHALIC Skin: Positive for: Normal Color Eye Exam: Positive for: Normal appearance ENT: Positive for: Normal ENT Inspection Cardiovascular/Chest: Positive for: Regular Rate, Rhythm Respiratory: Positive for: Normal Breath Sounds Gastrointestinal/Abdominal: Positive for: Bowel Sounds, Soft, Tenderness (diffuse) Back: Positive for: Normal Inspection Rectal: Positive for: Hemorrhoids (external; 4:00-6:00 position; nontender, nonthrombosed), Other (No parasites seen around rectum or on stool from [place]. 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 No erythema, warmth, drainage) Neurological/Psych: Positive for: Awake, Alert, Oriented (x3) - Laboratory Results Result Diagrams: 10/07/18 23:55 10/07/18 23:55 - ECG O2 Sat by Pulse Oximetry: 97 - Progress ED Course And Treament: -upreg -udip -cbc -cmp -lipase -urinalysis -urine c&s -stool culture -stool ova & parasites -CT abd/pelvis CT SCAN OF THE ABDOMEN AND PELVIS WITH CONTRAST. CLINICAL HISTORY: Abdominal pain. TECHNIQUE: Multiple axial and coronal CT images were obtained through the abdomen and pelvis after administration of intravenous and oral contrast material. COMMENTS: 2.4 cm right ovarian cyst. Enlarged uterus. Mild diffuse thickening of the bladder, probably mild cystitis. Mild amount of fecal residue in the large bowels. The liver is of uniform attenuation without mass or defect. There is no intra or extrahepatic biliary ductal dilatation. The spleen is normal. The gallbladder is absent. The pancreas is of normal contour and attenuation characteristics. There is no evidence of adrenal mass. Both kidneys demonstrate prompt and equal nephrograms. The kidneys are normal in size, shape and configuration. There is no evidence of renal or ureteral mass. No renal or ureteral calculi are identified. There is no hydroureter or hydronephrosis. No evidence for appendicitis. There is no bowel wall thickening. No evidence for small or large bowel obstruction. There is no evidence of abdominal ascites or lymphadenopathy. There is no pelvic ascites or lymphadenopathy. Images of the lung bases show no evidence of pleural or parenchymal mass. There are no pleural effusions. The bony structures are free of lytic or blastic lesions. IMPRESSION: 2.4 cm right ovarian cyst. Enlarged uterus. Mild diffuse thickening of the bladder, probably mild cystitis. Mild amount of fecal residue in the large bowels. Patient educated on findings, discharged with instructions to follow up with PM D, Podiatry, and Bench Worker Binding Advised Tylenol/Ibuprofen PRN pain Return precautions given Disposition - Clinical Impression Clinical Impression: Abdominal pain, Right ovarian cyst, [place] of foot, Callus of foot, Hemorrhoids - Patient ED Disposition Is Patient to be Admitted: No Counseled Patient/Family Regarding: Studies Performed, Diagnosis, Need For Fol lowup - Disposition Referrals: [facility] [Outside] [facility] [Outside] [facility] [Outside] Disposition: Routine/Home Disposition Time: 04:08 Condition: IMPROVED Instructions: Ovarian Cysts, Hemorrhoids, Corns and Calluses, Acute Abdomen (Belly Pain)
[2018-10-07] MEDS ORDERED: Iohexol 240 (50 ml) PO ONE (23:37)
[2018-10-08 00:09] LABS: BASO # 0.2 K/uL (0.0-0.2); BASO % 2.2 % (0.0-2.0); EOS # 1.1 K/uL (0.0-0.7); EOS % 13.1 % (0.0-4.0); HEMOGLOBIN 12.9 g/dL (12.0-16.0); LYMPH # 2.8 K/uL (1.0-4.3); LYMPH % 32.6 % (20.0-40.0); MEAN CELL VOLUME 90.3 fl (81.0-99.0); MEAN CORPUSCULAR HEMOGLOBIN 30.3 pg (27.0-31.0); MEAN CORPUSCULAR HGB CONC 33.5 g/dL (33.0-37.0); MEAN PLATELET VOLUME 8.8 fl (7.2-11.7); MONO # 0.7 K/uL (0.0-0.8); MONO % 8.1 % (0.0-10.0); NEUT # 3.8 K/uL (1.8-7.0); NRBC % 0.1 % (0.0-0.0); RBC 4.27 Mil/uL (3.80-5.20); WHITE BLOOD COUNT 8.5 K/uL (4.8-10.8)
[2018-10-08] MEDS ORDERED: Iohexol 240 (50 ml) ONE (00:09)
[2018-10-08 00:12] LABS: SQUAMOUS EPITHIAL 1 /hpf (0-5); URINE BACTERIA RARE (<OCC); URINE BILIRUBIN NEGATIVE (NEGATIVE); URINE BLOOD MODERATE (NEGATIVE); URINE CLARITY CLOUDY (Clear); URINE COLOR YELLOW (YELLOW); URINE GLUCOSE (UA) NEG (NEGATIVE); URINE LEUKOCYTE ESTERASE NEG Leu/uL (Negative); URINE PROTEIN NEGATIVE (NEGATIVE); URINE UROBILINOGEN 0.2-1.0 mg/dL (0.2-1.0)
[2018-10-08 00:16] LABS: ALB/GLOB RATIO 1.2 (1.0-2.1); ALBUMIN 4.1 g/dL (3.5-5.0); ALT/SGPT 44 U/L (9-52); AST/SGOT 27 U/L (14-36); BLOOD UREA NITROGEN 19 mg/dl (7-17); CALCIUM 8.5 mg/dL (8.4-10.2); GFR NON-AFRICAN AMERICAN > 60; LIPASE 186 U/L (23-300)
[2018-10-08] MEDS ORDERED: Iohexol 300 100 ML IJ ONE (01:51)
[2018-10-08] MEDS ORDERED: Sodium Chloride 0.9% 50 ML IV ONE (01:51)
[2018-10-08 04:42] VITALS: BP 102/52; PULSE 67; TEMP 97.8
--- NOTE | 2018-10-08 11:14 | CT ---
Date of service: 10/08/2018 PROCEDURE: CT Abdomen and Pelvis with contrast HISTORY: abd pain COMPARISON: Abdomen and pelvis CT with contrast 04/30/2017. TECHNIQUE: Following oral and intravenous contrast administration, a CT examination of the abdomen and pelvis was performed from the domes of the diaphragms to the symphysis pubis with reformatted datasets provided not only axial but also sagittal and coronal series. Contrast dose: Omnipaque 300, 95 cc Radiation dose: Total exam DLP = 522.28 mGy-cm. This CT exam was performed using one or more of the following dose reduction techniques: Automated exposure control, adjustment of the mA and/or kV according to patient size, and/or use of iterative reconstruction technique. FINDINGS: LOWER THORAX: Unremarkable. LIVER: Unremarkable. No gross lesion or ductal dilatation. GALLBLADDER AND BILE DUCTS: Unremarkable. PANCREAS: Unremarkable. No gross lesion or ductal dilatation. SPLEEN: Unremarkable. ADRENALS: Unremarkable. No mass. KIDNEYS AND URETERS: Unremarkable. No hydronephrosis. No solid mass. VASCULATURE: Unremarkable. No aortic aneurysm. No aortic atherosclerotic calcification or mural plaque present. BOWEL: Unremarkable. No obstruction. No gross mural thickening. APPENDIX: Normal appendix. PERITONEUM: Unremarkable. No free fluid. No free air. LYMPH NODES: Unremarkable. No enlarged lymph nodes. BLADDER: Unremarkable. REPRODUCTIVE: 2.0 cm right adnexal cyst with left adnexal compartment unremarkable. Stomach is collapsed with the antrum felix questionably thickened. This could be a function of collapse or gastritis. Clinically correlate further. BONES: No acute fracture. OTHER FINDINGS: None. IMPRESSION: Questionable antritis versus thickening of the antral wall due to collapse of the stomach. Clinically correlate further. 2.0 cm right adnexal cyst. Preliminary report provided by Sveta, 05/10/2019, 4:05 a.m..
== END 2018-10-08 04:43 | disposition home or self-care (01) ==
LOC: H.ER 22:28
DX: R10.9 Unspecified abdominal pain (principal); N83.201 Unspecified ovarian cyst, right side; L84 Corns and callosities; K64.9 Unspecified hemorrhoids; Z88.0 Allergy status to penicillin
CPT/HCPCS: 74177; 80053; 81003; 81025; 83690; 85025; 87045; 87086; 87177; 87209; 87491; 87591; 99284; G0328; Q9966; Q9967